=== PATIENT | male | born 1990 | race Caucasian/White ===

== ENCOUNTER 2021-07-25 20:58 | Emergency (ER) | payer OTHER ==
[2021-07-25] MEDS ORDERED: KETOROLAC TROME10 MG PO (22:32)
== END 2021-07-25 22:53 | disposition home or self-care (01) ==
LOC: FER 20:58
DX: G43.909 Migraine, unspecified, not intractable, without status migrainosus (principal)
CPT/HCPCS: J0780; J1200; J1885; J7030